=== PATIENT | male | born 1995 | race Caucasian/White ===

== ENCOUNTER 2017-04-16 20:28 | Emergency (ER) | payer SELFPAY ==
[~2017-04-16] VITALS: Ht 190.5 cm; Wt 80.0 kg
[~2017-04-16 20:28] MED LIST: EPIP0.3I IM; Z.0.UNKNOWN
[2017-04-16 20:31] VITALS: BP 155/83; PULSE 72; RESP 16; TEMP 98.4; O2SAT 100
[2017-04-16] MEDS ORDERED: HYDR-3533 PO (21:41)
[2017-04-16] MEDS ORDERED: AUGM875T3 PO (21:41)
--- NOTE | 2017-04-16 21:46 | PD ---
HPI Chief Complaint: Skin Problem Time Seen by Provider: 21:41 Travel History International Travel<30 days: No Contact w/Intl Traveler<30days: No Traveled to known affect area: No History of Present Illness HPI 21-year-old white male presents to emergency department with a painful swollen area to his buttocks over last 3-4 days. He denies any drainage. No fever chills. No prior problems in the past. Pain is moderate. Worse with movement. No alleviating factors. PFSH Past Medical History Narrative Medical Denies diabetes. No hypertension. Cardiovascular Problems: Yes (HEART MURMUR FINE NOW) Diminished Hearing: No Headaches: Yes Integumentary: Yes (FREQ EAR INFECTION ) Immunizations Current: Yes Tetanus Vaccination: < 5 Years Past Surgical History Surgical History: No Previous Surgery Social History Alcohol Use: No Tobacco Use: No Substance Use: No Allergies-Medications (Allergen,Severity, Reaction): Coded Allergies: No Known Allergies (Verified , 04/16/17) Reported Meds & Prescriptions Reported Meds & Active Scripts Active Review of Systems Except as stated in HPI: all other systems reviewed are Neg Physical Exam Narrative GENERAL: This is a well-nourished, well-developed patient, in no apparent distress. SKIN: Patient has a tender, red, swollen, indurated and fluctuant abscess to the gluteal cleft. This is consistent with a pilonidal cyst. This is a 3 x 5 cm.. Warm and dry. HEAD: Atraumatic. Normocephalic. EYES: PERRL, EOMI, no discharge or injection. No scleral icterus. EARS: Clear NOSE: Nasal turbinates appear normal. THROAT: Mucosa pink and moist. Airway patent. NECK: Trachea midline. supple, moves head freely. LUNGS: Clear to auscultation. CV: Regular in rhythm. ABDOMEN: Soft nontender. EXT: No clubbing cyanosis or edema. Data Data Last Documented VS Vital Signs Date Time Temp Pulse Resp B/P Pulse Ox O2 Delivery O2 Flow Rate FiO2 04/16/17 20:31 98.4 72 16 155/83 100 Room Air MDM Medical Decision Making Medical Screen Exam Complete: Yes Emergency Medical Condition: Yes Medical Record Reviewed: Yes Differential Diagnosis MDM: High Differential diagnoses: Abscess, folliculitis, cellulitis, lymphangitis, abrasion, contact dermatitis Narrative Course Patient has a pilonidal cyst which has been incised and drained. Patient is given Augmentin 500 mg by mouth and Lortab 5 a grams by mouth. Procedures Procedure Narrative I&D abscess: After the risks and benefits were discussed the following procedure was performed. The skin is prepped and draped in the usual sterile fashion using Betadine. The abscess is anesthetized with 1% lidocaine with epinephrine. After adequate anesthesia, an 15 blade scalpel is used to make a 2 centimeter central incision. Perulant material is expressed . Loculations are broken up using curved Evi forceps. The wound is cleansed deeply using dilute Betadine and peroxide on Q-tips. The wound is packed open using iodoform gauze. A clean dressing is applied. The patient tolerated the procedure well. There was no complications. Follow-up instructions were given to the patient. Diagnosis Primary Impression: Infected pilonidal cyst Patient Instructions: Narcotic given in the ED, General Instructions Additional Instructions: Rest. Elevation. keep clean and dry. remove the packing in 3 days. Lortab and Augmentin. Sits baths 2-3 times daily. Follow-up with a primary care doctor in one week. Return to the ER for any problems. Med/Other Pt SpecificInfo: Prescription(s) given, Wound Care Scripts Hydrocodone-Acetaminophen (Lortab)5-325 Mg Tab1 Tab PO Q4H PRN (PAIN) #20 TAB Prov:Gavino Hess MD 04/16/17 Amoxicillin-Clavulanate (Augmentin)875-125 Mg Tab1 Tab PO BID #20 TAB Prov:Gavino Hess MD 04/16/17 Disposition: 01 DISCHARGE HOME Condition: Stable Ant Rob Apr 16, 2017 21:46
[2017-04-16] MEDS ORDERED: ACETAMINOPHEN/HYDROcodone 325 MG/5 MG TAB PO ONE (22:00)
[2017-04-16] MEDS ORDERED: AMOXICILLIN/CLAVULANATE K 500 MG TAB PO ONE (22:00)
== END 2017-04-16 21:58 | disposition home or self-care (01) ==
LOC: NEPD 20:28
DX: L05.01 Pilonidal cyst with abscess (principal)
CPT/HCPCS: 10081